=== PATIENT | female | born 1975 | race Native Hawaiian/Other Pacific Islander ===

== ENCOUNTER 2017-08-10 12:47 | Observation (INO) | payer BC ==
[2017-08-10] VITALS (9 sets, daily range): BP systolic 112–171; BP diastolic 63–84; PULSE 73–100; RESP 16–20; TEMP 96.8–98.2; O2SAT 97–100
[~2017-08-10] VITALS: Ht 154.9 cm; Wt 60.6 kg
[~2017-08-10 12:47] MED LIST: MYCO500 PO; PRED10 PO
--- NOTE | 2017-08-10 13:10 | PD ---
HPI Chief Complaint: Chest pain Time Seen by Provider: 12:56 Travel History International Travel<30 days: No Contact w/Intl Traveler<30days: No Traveled to known affect area: No History of Present Illness HPI This 42-year-old female says she had left-sided chest pain this morning. The pain lasted for several hours and was fairly constant. Was not aggravated by breathing. She was not short of breath. She has no history of heart disease. She has no history of blood clots. She does have a history of lupus. Her lupus recently has been active and she is currently on CellCept, Plaquenil and prednisone. She has a history of hypertension and is on blood pressure meds. She recently had a kidney biopsy and apparently is having some kidney problems. She was recently admitted at [facility] with anemia. She was found to have a blood clot in her esophagus she says and is due for follow-up. She does feel as though the pain is reproducible by palpation PFSH Social History Alcohol Use: No Tobacco Use: No Allergies-Medications (Allergen,Severity, Reaction): Coded Allergies: No Known Allergies (Verified Adverse Reaction, Unknown, 08/10/17) Reported Meds & Prescriptions Reported Meds & Active Scripts Active Reported Cardizem (Diltiazem HCl) 120 Mg Tab 180 Mg PO BID Plaquenil (Hydroxychloroquine Sulfate) 200 Mg Tab 200 Mg PO BID Take with food Pantoprazole (Pantoprazole Sodium) 40 Mg Tab 40 Mg PO DAILY K-Tab (Potassium Chloride) 10 Meq Tab 10 Meq PO EVERY THREE DAYS Lasix (Furosemide) 20 Mg Tab 20 Mg PO EVERY THREE DAYS Amlodipine (Amlodipine Besylate) 2.5 Mg Tab 2.5 Mg PO DAILY Losartan (Losartan Potassium) 25 Mg Tab 25 Mg PO DAILY Hydrochlorothiazide 12.5 Mg Tab 12.5 Mg PO BID Prednisone 10 Mg Tab 10 Mg PO DAILY Cellcept (Mycophenolate Mofetil) 500 Mg Tab 1,500 Mg PO BID Review of Systems General / Constitutional: No: Fever, Chills Eyes: No: Diploplia HENT: No: Headaches Cardiovascular: Positive: Chest Pain or Discomfort Respiratory: No: Shortness of Breath Gastrointestinal: No: Nausea Genitourinary: No: Urgency, Frequency Musculoskeletal: Positive: Myalgias, Arthralgias Skin: No Rash Neurologic: No: Weakness Endocrine: No: Heat Intolerance, Cold Intolerance Hematologic/Lymphatic: No: Easy Bruising Physical Exam Narrative GENERAL: Well-developed female SKIN: Focused skin assessment warm/dry. HEAD: Atraumatic. Normocephalic. EYES: Pupils equal and round. No scleral icterus. No injection or drainage. ENT: No nasal bleeding or discharge. Mucous membranes pink and moist. NECK: Trachea midline. No JVD. CARDIOVASCULAR: Regular rate and rhythm. No murmur appreciated. RESPIRATORY: No accessory muscle use. Clear to auscultation. Breath sounds equal bilaterally. GASTROINTESTINAL: Abdomen soft, non-tender, nondistended. Hepatic and splenic margins not palpable. MUSCULOSKELETAL: No obvious deformities. No clubbing. No cyanosis. Bilateral pedal edema. She does have scoliosis NEUROLOGICAL: Awake and alert. No obvious cranial nerve deficits. Motor grossly within normal limits. Normal speech. PSYCHIATRIC: Appropriate mood and affect; insight and judgment normal. Data Data Last Documented VS Vital Signs Date Time Temp Pulse Resp B/P (MAP) Pulse Ox O2 Delivery O2 Flow Rate FiO2 08/10/17 14:48 83 18 112/63 (79) 98 Room Air 08/10/17 12:50 98.2 Orders Orders Electrocardiogram (08/10/17 13:05) Complete Blood Count With Diff (08/10/17 13:05) Comprehensive Metabolic Panel (08/10/17 13:05) Troponin I (08/10/17 13:05) B-Type Natriuretic Peptide (08/10/17 13:05) Prothrombin Time / Inr (Pt) (08/10/17 13:05) Act Partial Throm Time (Ptt) (08/10/17 13:05) Urinalysis - C+S If Indicated (08/10/17 13:05) Magnesium (Mg) (08/10/17 13:05) Chest, Single Ap (08/10/17 13:05) Labs Laboratory Tests Test 08/10/17 13:00 White Blood Count 5.1 TH/MM3 Red Blood Count 2.92 MIL/MM3 Hemoglobin 8.5 GM/DL Hematocrit 25.5 % Mean Corpuscular Volume 87.2 FL Mean Corpuscular Hemoglobin 29.0 PG Mean Corpuscular Hemoglobin Concent 33.3 % Red Cell Distribution Width 14.7 % Platelet Count 254 TH/MM3 Mean Platelet Volume 6.6 FL Neutrophils (%) (Auto) 87.0 % Lymphocytes (%) (Auto) 7.7 % Monocytes (%) (Auto) 3.5 % Eosinophils (%) (Auto) 1.5 % Basophils (%) (Auto) 0.3 % Neutrophils # (Auto) 4.4 TH/MM3 Lymphocytes # (Auto) 0.4 TH/MM3 Monocytes # (Auto) 0.2 TH/MM3 Eosinophils # (Auto) 0.1 TH/MM3 Basophils # (Auto) 0.0 TH/MM3 CBC Comment DIFF FINAL Differential Comment Prothrombin Time 9.5 SEC Prothromb Time International Ratio 0.9 RATIO Activated Partial Thromboplast Time 26.7 SEC Blood Urea Nitrogen 49 MG/DL Creatinine 3.20 MG/DL Random Glucose 111 MG/DL Total Protein 6.1 GM/DL Albumin 2.5 GM/DL Calcium Level 8.5 MG/DL Magnesium Level 1.7 MG/DL Alkaline Phosphatase 60 U/L Aspartate Amino Transf (AST/SGOT) 8 U/L Alanine Aminotransferase (ALT/SGPT) 8 U/L Total Bilirubin 0.2 MG/DL Sodium Level 136 MEQ/L Potassium Level 4.5 MEQ/L Chloride Level 109 MEQ/L Carbon Dioxide Level 16.2 MEQ/L Anion Gap 11 MEQ/L Estimat Glomerular Filtration Rate 16 ML/MIN B-Type Natriuretic Peptide 41 PG/ML MDM Medical Decision Making Medical Screen Exam Complete: Yes Emergency Medical Condition: Yes Medical Record Reviewed: Yes Differential Diagnosis Differential includes coronary artery disease, chest wall pain, reflux Narrative Course EKG shows normal sinus rhythm. Hemoglobin is 8.5 with a white count of 5.1. BUN is 49 with creatinine of 3.2. Troponin analyzer is currently down and the result is pending. Diagnosis Primary Impression: Chest pain Brian Garcia MD Aug 10, 2017 13:10
[2017-08-10 13:18] LABS: AUTOMATED NEUTROPHIL # 4.4 TH/MM3 (1.8-7.7); BASOPHIL % 0.3 % (0.0-2.0); EOSINOPHIL # 0.1 TH/MM3 (0-0.4); EOSINOPHIL % 1.5 % (0.0-4.0); HEMATOCRIT 25.5 % (35.0-46.0); HEMOGLOBIN 8.5 GM/DL (11.6-15.3); LYMPH % 7.7 % (9.0-44.0); LYMPHOCYTE # 0.4 TH/MM3 (1.0-4.8); MEAN CELL VOLUME 87.2 FL (80.0-100.0); MEAN CORPUSCULAR HGB CONC 33.3 % (32.0-36.0); MEAN PLATELET VOLUME 6.6 FL (7.0-11.0); MONO % 3.5 % (0.0-8.0); MONOCYTE # 0.2 TH/MM3 (0-0.9); PLATELET COUNT 254 TH/MM3 (150-450); RED BLOOD COUNT 2.92 MIL/MM3 (4.00-5.30); RED CELL DISTRIBUTION WIDTH 14.7 % (11.6-17.2); WHITE BLOOD COUNT 5.1 TH/MM3 (4.0-11.0)
[2017-08-10] MEDS ORDERED: PANT40TA3 PO (13:18)
[2017-08-10] MEDS ORDERED: PLAQ200T PO (13:18)
[2017-08-10] MEDS ORDERED: HYDR12.56 PO (13:18)
[2017-08-10] MEDS ORDERED: FURO1TAB62 PO (13:18)
[2017-08-10] MEDS ORDERED: CARD180C5 PO (13:18)
[2017-08-10] MEDS ORDERED: LOSA25TA PO (13:18)
[2017-08-10] MEDS ORDERED: AMLO2.5T PO (13:18)
[2017-08-10] MEDS ORDERED: K-TA10TA PO (13:18)
[2017-08-10] MEDS ORDERED: CARD120T4 PO (13:19)
[2017-08-10 13:25] LABS: CHLORIDE 109 MEQ/L (98-107); SODIUM (NA) 136 MEQ/L (136-145)
[2017-08-10 13:29] LABS: ALBUMIN 2.5 GM/DL (3.4-5.0); BICARBONATE 16.2 MEQ/L (21.0-32.0); BLOOD UREA NITROGEN 49 MG/DL (7-18); CALCIUM 8.5 MG/DL (8.5-10.1); GLUCOSE,RANDOM 111 MG/DL (74-106); MAGNESIUM 1.7 MG/DL (1.5-2.5)
[2017-08-10 13:32] LABS: ALT (GPT) 8 U/L (10-53); AST (GOT) 8 U/L (15-37); GLOMERULAR FILTRATION RATE 16 ML/MIN (>89); INTERNATIONAL NORMALIZED RATIO 0.9 RATIO; PROTHROMBIN TIME - PATIENT 9.5 SEC (9.8-11.6)
[2017-08-10 13:34] LABS: TOTAL BILIRUBIN ADULT 0.2 MG/DL (0.2-1.0); TOTAL PROTEIN 6.1 GM/DL (6.4-8.2)
[2017-08-10 13:35] LABS: ALKALINE PHOSPHATASE 60 U/L (45-117)
--- NOTE | 2017-08-10 13:49 | RADRPT ---
EXAM DATE: 08/10/2017 1:46 PM EDT AGE/SEX: 42 years / Female INDICATIONS: Chest pain CLINICAL DATA: This is the patient's initial encounter. Patient reports that signs and symptoms have been present for 1 week and indicates a pain score of 0/10. MEDICAL/SURGICAL HISTORY: Hypertension. Gastroesophageal reflux disease. Lupus. None. COMPARISON: No prior exams available for comparison. FINDINGS: Marked scoliosis. Mild cardiomegaly. Lungs are clear. No pneumothorax. No pleural effusion. CONCLUSION: Marked scoliosis with mild compensated cardiomegaly Electronically signed by: Vu Alejandre MD 08/10/2017 1:48 PM EDT
--- NOTE | 2017-08-10 13:58 | EKG ---
Date Performed: 08/10/2017 Time Performed: 12:53:39 PTAGE: 42 years EKG: Sinus rhythm POSSIBLE RIGHT VENTRICULAR CONDUCTION DELAY BORDERLINE ECG NO PREVIOUS TRACING DOCTOR: Tommy Arechiga Interpretating Date/Time 08/10/2017 13:56:25
[2017-08-10 16:06] LABS: BILIRUBIN, URINE NEG (NEG); BLOOD, URINE MOD (NEG); GLUCOSE,URINE NEG (NEG); KETONE, URINE NEG (NEG); NITRITE,URINE NEG (NEG); PH, URINE 5.5 (5.0-8.5); URINE COLOR YELLOW (YELLW/STRAW); URINE LEUKOCYTE ESTERASE NEG (NEG)
[2017-08-10 16:12] LABS: TROPONIN I LESS THAN 0.02 NG/ML (0.02-0.05)
--- NOTE | 2017-08-10 16:14 | PD ---
Data Data Last Documented VS Vital Signs Date Time Temp Pulse Resp B/P (MAP) Pulse Ox O2 Delivery O2 Flow Rate FiO2 08/10/17 16:45 80 16 127/77 (94) 99 Room Air 08/10/17 12:50 98.2 Orders Orders Electrocardiogram (08/10/17 13:05) Complete Blood Count With Diff (08/10/17 13:05) Comprehensive Metabolic Panel (08/10/17 13:05) Troponin I (08/10/17 13:05) B-Type Natriuretic Peptide (08/10/17 13:05) Prothrombin Time / Inr (Pt) (08/10/17 13:05) Act Partial Throm Time (Ptt) (08/10/17 13:05) Urinalysis - C+S If Indicated (08/10/17 13:05) Magnesium (Mg) (08/10/17 13:05) Chest, Single Ap (08/10/17 13:05) Admit Order (Ed Use Only) (08/10/17 ) Labs Laboratory Tests Test 08/10/17 13:00 08/10/17 15:55 White Blood Count 5.1 TH/MM3 Red Blood Count 2.92 MIL/MM3 Hemoglobin 8.5 GM/DL Hematocrit 25.5 % Mean Corpuscular Volume 87.2 FL Mean Corpuscular Hemoglobin 29.0 PG Mean Corpuscular Hemoglobin Concent 33.3 % Red Cell Distribution Width 14.7 % Platelet Count 254 TH/MM3 Mean Platelet Volume 6.6 FL Neutrophils (%) (Auto) 87.0 % Lymphocytes (%) (Auto) 7.7 % Monocytes (%) (Auto) 3.5 % Eosinophils (%) (Auto) 1.5 % Basophils (%) (Auto) 0.3 % Neutrophils # (Auto) 4.4 TH/MM3 Lymphocytes # (Auto) 0.4 TH/MM3 Monocytes # (Auto) 0.2 TH/MM3 Eosinophils # (Auto) 0.1 TH/MM3 Basophils # (Auto) 0.0 TH/MM3 CBC Comment DIFF FINAL Differential Comment Prothrombin Time 9.5 SEC Prothromb Time International Ratio 0.9 RATIO Activated Partial Thromboplast Time 26.7 SEC Blood Urea Nitrogen 49 MG/DL Creatinine 3.20 MG/DL Random Glucose 111 MG/DL Total Protein 6.1 GM/DL Albumin 2.5 GM/DL Calcium Level 8.5 MG/DL Magnesium Level 1.7 MG/DL Alkaline Phosphatase 60 U/L Aspartate Amino Transf (AST/SGOT) 8 U/L Alanine Aminotransferase (ALT/SGPT) 8 U/L Total Bilirubin 0.2 MG/DL Sodium Level 136 MEQ/L Potassium Level 4.5 MEQ/L Chloride Level 109 MEQ/L Carbon Dioxide Level 16.2 MEQ/L Anion Gap 11 MEQ/L Estimat Glomerular Filtration Rate 16 ML/MIN Troponin I LESS THAN 0.02 NG/ML B-Type Natriuretic Peptide 41 PG/ML Urine Color YELLOW Urine Turbidity CLEAR Urine pH 5.5 Urine Specific [place] 1.020 Urine Protein 100 mg/dL Urine Glucose (UA) NEG mg/dL Urine Ketones NEG mg/dL Urine Occult Blood MOD Urine Nitrite NEG Urine Bilirubin NEG Urine Urobilinogen 0.2 MG/DL Urine Leukocyte Esterase NEG Urine RBC 4-9 /hpf Urine WBC 3-5 /hpf Urine Squamous Epithelial Cells 0-5 /hpf Urine Amorphous Sediment RARE Urine Bacteria FEW /hpf Urine Hyaline Casts 0-2 /lpf Microscopic Urinalysis Comment CULT NOT INDICATED MDM Supervised Visit with DOTTY: No Narrative Course Patient CARE assumed from Dr. Harris at 1500, recesses patient she is chest pain-free. Patient does become tearful at times during my history and physical , she is concerned about her overall state of health, recently admitted to [facility] for 2 weeks for acute on chronic kidney failure, she is followed by Dr. Duarte. She started having nondescript chest discomfort on left side of her chest starting this morning, no shortness of breath no abdominal pain no alleviating or exacerbating factors that she says to me. Her EKG does show nonspecific RSR prime pattern in V1 and deep S wave in lead III otherwise is a fairly unremarkable EKG. There is no concerning ST segment changes. Certainly her lupus puts her at increased risk for coronary artery disease, we are still awaiting a troponin at this time and will continue to reassess the patient. She is followed by Dr. Arechiga and is already inquiring about the possibility following up outpatient for stress testing if needed in the future. After the patient's troponin has returned as negative I have discussed the patient with Dr. Arechiga the possibility of following up outpatient for stress testing is the patient's preference. Dr. Arechiga and stated that he is uncomfortable with this and would rather have the patient in the chest pain center have serial troponins and a nuclear stress test. He states if any of that was positive he would be glad to be consulted on the patient. Recommendation was passed on to the patient and her and they have agreed for admission. The patient additional history is that she was admitted to [facility] a few weeks ago for similar complaints but then she had also coughed up a blood clot, she had a VQ scan which was negative at that time, she also had an endoscopy by Dr. Taylor showing a hematoma in the esophagus. She also recently had a kidney biopsy as well and the results are unknown at this time. Patient remains chest pain-free. At the request of the patient and Dr. Mcpherson request for outside records has been submitted to [facility], I have requested discharge summary consult and recommendations and labs. Diagnosis Primary Impression: Chest pain Admitting Information Admitting Physician Requests: Observation Condition: Stable Martinez Zaragoza MD Aug 10, 2017 16:14
[2017-08-10 16:20] LABS: AMORPHOUS SEDIMENT, URINE RARE; BACTERIA, URINE FEW /hpf; SQUAMOUS EPITHELIAL CELL URINE 0-5 /hpf (0-5)
[2017-08-10 16:21] LABS: HYALINE CAST, URINE 0-2 /lpf (RARE)
[2017-08-10] MEDS ORDERED: MORPHINE SULFATE 4 MG/ML INJ IV PUSH PRN (17:15)
[2017-08-10] MEDS ORDERED: SODIUM CHLORIDE 0.9% FLUSH 10 ML FLUSH IV FLUSH PRN (17:15)
[2017-08-10] MEDS ORDERED: ACETAMINOPHEN/HYDROcodone 325 MG/7.5 MG TAB PO PRN (17:15)
[2017-08-10] MEDS ORDERED: ACETAMINOPHEN 500 MG CPLT PO PRN (17:15)
[2017-08-10 18:24] LABS: TROPONIN I LESS THAN 0.02 NG/ML (0.02-0.05)
--- NOTE | 2017-08-10 19:13 | HHI.HP ---
[facility] Primary Care Physician Kamron Sheridan MD Admission Diagnosis Chest pain Diagnoses: (1) Chest pain Diagnosis: Principal (2) Acute renal failure superimposed on chronic kidney disease Diagnosis: Principal (3) Metabolic acidosis Diagnosis: Principal (4) Lupus (systemic lupus erythematosus) Diagnosis: Principal (5) Anemia Diagnosis: Principal Chief Complaint: Chest pain Travel History International Travel<30 Days: No Contact w/Intl Traveler <30 Da: No Traveled to Known Affected Are: No History of Present Illness Written by Errol Beltrán, acting as scribe for Dr. Freire on 08/10/17 at 18: 51. 42-year-old rather unfortunate female with known history of lupus, chronic kidney disease which is worsening who presented the hospital because of chest pain. Initially she states pain but then described it more as chest pressure. It is located in the left anterior upper chest, she describes as a pressure of 5 /10 on a pain scale. There is no associated nausea, vomiting, radiation into the neck, back, shoulder, arm, no diaphoresis, no shortness of breath or dyspnea. This morning when she woke up she developed the pain when she turned over in bed and the pain was again located in left anterior part of her chest and it lasted for approximately an hour. She called her primary medical doctor who notified her to go to the emergency department for evaluation. The patient had evaluation done in the emergency department and Dr. Zaragoza did call patient's opening machine cleaner Dr. Arechiga and notified him that the patient was in the emergency department for evaluation of chest pain. The patient wanted to have outpatient workup performed, however Dr. Arechiga did not feel comfortable and recommended that the patient be admitted to have a Lexiscan stress test performed. The patient does have worsening kidney injury. Her creatinine was 3.2 here in the emergency department. She indicates that the last number that she can remember was 2.2. She states that she has never been in the threes before. Patient just underwent renal biopsy on , 08/06/17. She has not received the results from the curer acid drum, . She did contact her curer acid drum while she was here in the hospital. They notified him that they have been admitted and he indicated that if the patient has remained in the hospital for longer than 1 day then he would like to be consulted. Currently the patient is asymptomatic. Review of Systems Cardiovascular: COMPLAINS OF: Chest pain, Lower Extremity Edema Except as stated in HPI: all other systems reviewed are Neg Past Family Social History Past Medical History Chronic kidney disease Hypertension Lupus History of thyroid nodule Past Surgical History 2 Kidney biopsy Reported Medications Reported Meds & Active Scripts Active Reported Cardizem (Diltiazem HCl) 120 Mg Tab 180 Mg PO BID Plaquenil (Hydroxychloroquine Sulfate) 200 Mg Tab 200 Mg PO BID Take with food Pantoprazole (Pantoprazole Sodium) 40 Mg Tab 40 Mg PO DAILY K-Tab (Potassium Chloride) 10 Meq Tab 10 Meq PO EVERY THREE DAYS Lasix (Furosemide) 20 Mg Tab 20 Mg PO EVERY THREE DAYS Amlodipine (Amlodipine Besylate) 2.5 Mg Tab 2.5 Mg PO DAILY Losartan (Losartan Potassium) 25 Mg Tab 25 Mg PO DAILY Hydrochlorothiazide 12.5 Mg Tab 12.5 Mg PO BID Prednisone 10 Mg Tab 10 Mg PO DAILY Cellcept (Mycophenolate Mofetil) 500 Mg Tab 1,500 Mg PO BID Allergies: Coded Allergies: No Known Allergies (Verified Allergy, Unknown, 08/10/17) Family History Family history reviewed and she indicates that father had diabetes Social History Patient denies any tobacco, alcohol or illicit drug Physical Exam Vital Signs Vital Signs Date Time Temp Pulse Resp B/P (MAP) Pulse Ox O2 Delivery O2 Flow Rate FiO2 08/10/17 18:12 08/10/17 17:29 99 21 08/10/17 16:45 80 16 127/77 (94) 99 Room Air 08/10/17 15:54 80 16 134/72 (92) 100 Room Air 08/10/17 14:48 83 18 112/63 (79) 98 Room Air 08/10/17 13:32 83 18 120/72 (88) 98 Room Air 08/10/17 13:00 93 08/10/17 12:50 98.2 100 18 171/79 (109) 97 Physical Exam GENERAL: Well-developed, well-nourished, alert and orientated HEENT: Head is normocephalic without any lesions or masses noted. Facial features are symmetric. Eyes: Pupils equal round reactive to light. Extraocular muscles are intact. Conjunctivae were clear. Oropharyngeal: Pharynx without any erythema. Tongue is midline without deviation. NECK: Supple without any masses. Trachea midline no deviation. No JVD CARDIAC: Regular rhythm, regular rate. S1/S2 are heard. No murmurs. Unable to reproduce pain/pressure w palpation LUNGS: Clear to auscultation bilaterally. No wheeze. No use of accessory muscles on inspiration or expiration. ABDOMEN: Soft, nontender. Nondistended. Bowel sounds heard in all 4 quadrants.Negative rebound, negative guarding EXTREMITIES: 2+ pitting edema up to tibial tuberosity, pulses are equal bilaterally. NEUROLOGY: Mood and affect appear appropriate. Cranial nerves II through XII grossly intact. Muscle strength 5/5 in upper and lower extremities bilaterally. Laboratory Laboratory Tests Test 08/10/17 13:00 08/10/17 15:55 08/10/17 17:30 White Blood Count 5.1 Red Blood Count 2.92 Hemoglobin 8.5 Hematocrit 25.5 Mean Corpuscular Volume 87.2 Mean Corpuscular Hemoglobin 29.0 Mean Corpuscular Hemoglobin Concent 33.3 Red Cell Distribution Width 14.7 Platelet Count 254 Mean Platelet Volume 6.6 Neutrophils (%) (Auto) 87.0 Lymphocytes (%) (Auto) 7.7 Monocytes (%) (Auto) 3.5 Eosinophils (%) (Auto) 1.5 Basophils (%) (Auto) 0.3 Neutrophils # (Auto) 4.4 Lymphocytes # (Auto) 0.4 Monocytes # (Auto) 0.2 Eosinophils # (Auto) 0.1 Basophils # (Auto) 0.0 CBC Comment DIFF FINAL Differential Comment Prothrombin Time 9.5 Prothromb Time International Ratio 0.9 Activated Partial Thromboplast Time 26.7 Blood Urea Nitrogen 49 Creatinine 3.20 Random Glucose 111 Total Protein 6.1 Albumin 2.5 Calcium Level 8.5 Magnesium Level 1.7 Alkaline Phosphatase 60 Aspartate Amino Transf (AST/SGOT) 8 Alanine Aminotransferase (ALT/SGPT) 8 Total Bilirubin 0.2 Sodium Level 136 Potassium Level 4.5 Chloride Level 109 Carbon Dioxide Level 16.2 Anion Gap 11 Estimat Glomerular Filtration Rate 16 Troponin I LESS THAN 0.02 LESS THAN 0.02 B-Type Natriuretic Peptide 41 Urine Color YELLOW Urine Turbidity CLEAR Urine pH 5.5 Urine Specific [place] 1.020 Urine Protein 100 Urine Glucose (UA) NEG Urine Ketones NEG Urine Occult Blood MOD Urine Nitrite NEG Urine Bilirubin NEG Urine Urobilinogen 0.2 Urine Leukocyte Esterase NEG Urine RBC 4-9 Urine WBC 3-5 Urine Squamous Epithelial Cells 0-5 Urine Amorphous Sediment RARE Urine Bacteria FEW Urine Hyaline Casts 0-2 Microscopic Urinalysis Comment CULT NOT INDICATED Total Creatine Kinase 21 Result Diagram: 08/10/17 1300 08/10/17 1300 Imaging Last Impressions Chest X-Ray 08/10/17 1305 Signed Impressions: CONCLUSION: Marked scoliosis with mild compensated cardiomegaly Caprini VTE Risk Assessment Caprini VTE Risk Assessment: No/Low Risk (score <= 1) Caprini Risk Assessment Model Point Value = 1 Point Value = 2 Point Value = 3 Point Value = 5 Age 41-60 Minor surgery BMI > 25 kg/m2 Swollen legs Varicose veins or History of unexplained or recurrent spontaneous Oral contraceptives or hormone replacement Sepsis (< 1 month) Serious lung disease, including pneumonia (< 1 month) Abnormal pulmonary function Acute myocardial infarction Congestive heart failure (< 1 month) History of inflammatory bowel disease Medical patient at bed rest Age 61-74 Arthroscopic surgery Major open surgery (> 45 min) Laparoscopic surgery (> 45 min) Malignancy Confined to bed (> 72 hours) Immobilizing plaster cast Central venous access Age >= 75 History of VTE Family history of VTE Factor V Leiden Prothrombin [id number] Lupus anticoagulant Anticardiolipin antibodies Elevated serum homocysteine Heparin-induced thrombocytopenia Other congenital or acquired thrombophilia Stroke (< 1 month) Elective arthroplasty Hip, pelvis, or leg fracture Acute spinal cord injury (< 1 month) Prophylaxis Regimen Total Risk Factor Score Risk Level Prophylaxis Regimen 0-1 Low Early ambulation 2 Moderate Order ONE of the following: *Sequential Compression Device (SCD) *Heparin 5000 units SQ BID 3-4 Higher Order ONE of the following medications: *Heparin 5000 units SQ TID *Enoxaparin/Lovenox 40 mg SQ daily (WT < 150 kg, CrCl > 30 mL/min) *Enoxaparin/Lovenox 30 mg SQ daily (WT < 150 kg, CrCl > 10-29 mL/min) *Enoxaparin/Lovenox 30 mg SQ BID (WT < 150 kg, CrCl > 30 mL/min) AND/OR *Sequential Compression Device (SCD) 5 or more Highest Order ONE of the following medications: *Heparin 5000 units SQ TID (Preferred with Epidurals) *Enoxaparin/Lovenox 40 mg SQ daily (WT < 150 kg, CrCl > 30 mL/min) *Enoxaparin/Lovenox 30 mg SQ daily (WT < 150 kg, CrCl > 10-29 mL/min) *Enoxaparin/Lovenox 30 mg SQ BID (WT < 150 kg, CrCl > 30 mL/min) AND *Sequential Compression Device (SCD) Assessment and Plan Assessment and Plan Chest pain/pressure, atypical -Patient does have increased risk with 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 Arechiga who recommended the patient undergo nuclear stress test, if patient ruled out for acute coronary event will anticipate nuclear stress test in the morning. If cardiac enzymes are elevated then Dr. Arechiga needs to be notified immediately -Patient will be continued on aspirin, morphine as needed for pain, nitroglycerin as needed Acute renal failure superimposed on chronic kidney disease with metabolic acidosis -Patient does have chronic kidney disease, however unknown stage at this time. There are no records available to determine. Patient indicates that lasts number that she knew was her creatinine was 2.2. Patient has recently underwent renal biopsy 08/06/17. Patient does not know the results -Patient indicates that she spoke with Dr. Duatre her curer acid drum. He indicated that if the patient is remain in the hospital over 24 hours and he would request a consultation. -Encouraged po hydration. Start IVF fluids at low rate and monitor pt's Cr levels. Caution as pt has developed lower ext edema. -Monitor renal function, if renal functions do not improve, patient will require further management with curer acid drum consultation, possible bicarb to correct the acidosis Hypertension -Home medications have been continued except for pt's losartan and HCTZ due to acute on chronic renal failure. Lupus -Home medications continued DVT prevention -Sequential compression devices This note was transcribed by nain Beltrán. I, Dr. Aline Friere personally performed the history, physical exam, and medical decision making; and confirmed the accuracy of the information in the transcribed note. Authenticated by Dr. Aline Freire on 08/10/17 at 18:51. Code Status Full code Discussed Condition With ER physician, pt and pt's Errol Beltrán Aug 10, 2017 19:13 Aline Freire MD Aug 11, 2017 05:30
[2017-08-10 20:57] LABS: TROPONIN I LESS THAN 0.02 NG/ML (0.02-0.05)
[2017-08-10] MEDS: DILTIAZEM-CD 180 MG CAP ER PO SCH ×2 (21:00→22:51)
--- NOTE | 2017-08-10 21:50 | EKG ---
Date Performed: 08/10/2017 Time Performed: 20:24:06 PTAGE: 42 years EKG: Sinus rhythm POSSIBLE RIGHT VENTRICULAR CONDUCTION DELAY BORDERLINE ECG No significant change from prior electroc ardiogram. PREVIOUS TRACING : 08/10/2017 17.24 DOCTOR: Tommy Arechiga Interpretating Date/Time 08/10/2017 21:48:16
--- NOTE | 2017-08-10 21:50 | EKG ---
Date Performed: 08/10/2017 Time Performed: 17:24:52 PTAGE: 42 years EKG: Sinus rhythm RSR prime in leads V1 and V2. Compared to prior electrocardiogram, rate has decreased . PREVIOUS TRACING : 08/10/2017 12.53 DOCTOR: Tommy Arechiga Interpretating Date/Time 08/10/2017 21:49:19
[2017-08-10] MEDS: MYCOPHENOLATE MOFETIL 500 MG TAB PO SCH (22:51)
[2017-08-10] MEDS: HYDROXYCHLOROQUINE SULFATE 200 MG TAB PO SCH (22:51)
[2017-08-10] MEDS: SODIUM CHLORIDE 0.9% FLUSH 10 ML FLUSH IV FLUSH SCH (22:52)
[2017-08-11] MEDS ORDERED: LACTATED RINGER'S 1000 ML INJ 1,000 ML IV SCH
[2017-08-11 00:12] VITALS: BP 120/77; PULSE 74; RESP 20; TEMP 96.5; O2SAT 95
[2017-08-11 04:22] VITALS: BP 135/85; PULSE 86; RESP 20; TEMP 96.2; O2SAT 99
[2017-08-11] MEDS ORDERED: NITROGLYCERIN 2% OINT 1 GM PACKET TOPICAL PRN (05:45)
[2017-08-11] MEDS ORDERED: SODIUM CHLOR 0.9% 1000 ML INJ 1,000 ML IV SCH (05:45)
--- NOTE | 2017-08-11 05:57 | HHI.PR ---
Addendum to Inpatient Note Addendum Reason: Additional Documentation Additional Information Plan was to start pt on NS@60ml/hr however for some reason my order didn't save. Night team did start her on LR @65ml/hr as she is NPO after midnight however due to pt's kidney function, I have switched to NS@60ml/hr to prevent hyperkalemia. f/u her BMP this morning. Aline Freire MD Aug 11, 2017 05:57
[2017-08-11 07:39] VITALS: BP 142/71; PULSE 97; RESP 18; TEMP 98.5; O2SAT 97
[2017-08-11 08:00] VITALS: O2SAT 95
[2017-08-11] MEDS: DILTIAZEM-CD 180 MG CAP ER PO SCH (08:22)
[2017-08-11] MEDS: predniSONE 10 MG TAB PO SCH ×3 (08:23→13:27)
[2017-08-11] MEDS: SODIUM CHLORIDE 0.9% FLUSH 10 ML FLUSH IV FLUSH SCH (08:28)
[2017-08-11] MEDS ORDERED: PANTOPRAZOLE SOD 40 MG DELAYED RELEASE TAB PO SCH (09:00)
[2017-08-11] MEDS ORDERED: FUROSEMIDE 20 MG TAB PO SCH (09:00)
[2017-08-11] MEDS ORDERED: amLODIPine BESYLATE 5 MG TAB PO SCH (09:00)
[2017-08-11] MEDS ORDERED: POTASSIUM CHLORIDE 10 MEQ CONTROLLED RELEASE TAB PO SCH (09:00)
[2017-08-11] MEDS: HYDROXYCHLOROQUINE SULFATE 200 MG TAB PO SCH ×2 (09:00→13:27)
[2017-08-11] MEDS ORDERED: ASPIRIN 325 MG TAB PO SCH (09:00)
[2017-08-11] MEDS: MYCOPHENOLATE MOFETIL 500 MG TAB PO SCH (09:03)
--- NOTE | 2017-08-11 10:55 | HHI.PR ---
Subjective Remarks Follow-up chest pain and acute on chronic renal failure. Patient seen and examined, lying in bed comfortably in no apparent distress. Denies any further chest pain. Resolved today. Has been eating well with no abdominal pain, nausea or vomiting. Patient states she has a scheduled appointment with Dr. Duarte tomorrow at noon and is hoping she can follow up with him then. Eager to get home. All symptoms have resolved. Afebrile overnight, vital signs are stable. Will undergo Lexiscan today. Objective Vitals Vital Signs Date Time Temp Pulse Resp B/P (MAP) Pulse Ox O2 Delivery O2 Flow Rate FiO2 08/11/17 07:39 98.5 97 18 142/71 (94) 97 08/11/17 04:22 96.2 86 20 135/85 (102) 99 08/11/17 00:12 96.5 74 20 120/77 (91) 95 08/10/17 21:00 81 08/10/17 20:43 96.8 73 20 128/84 (99) 97 08/10/17 20:30 99 21 08/10/17 18:12 08/10/17 17:29 99 21 08/10/17 16:45 80 16 127/77 (94) 99 Room Air 08/10/17 15:54 80 16 134/72 (92) 100 Room Air 08/10/17 14:48 83 18 112/63 (79) 98 Room Air 08/10/17 13:32 83 18 120/72 (88) 98 Room Air 08/10/17 13:00 93 08/10/17 12:50 98.2 100 18 171/79 (109) 97 I/O 08/10/17 08/10/17 08/10/17 08/11/17 08/11/17 08/11/17 07:00 15:00 23:00 07:00 15:00 23:00 Intake Total 300 ml Balance 300 ml Intake IV Total 300 ml # Voids 2 Result Diagram: 08/10/17 1300 08/10/17 1300 Imaging Last Impressions Chest X-Ray 08/10/17 1305 Signed Impressions: CONCLUSION: Marked scoliosis with mild compensated cardiomegaly Objective Remarks GENERAL: Well-developed, well-nourished patient in NAD. SKIN: Warm and dry. No rash. HEAD: Normocephalic. Atraumatic. EYES: Pupils equal and round. No scleral icterus. No injection or drainage. ENT: No nasal bleeding or discharge. Mucous membranes pink and moist. NECK: Supple. Trachea midline. CARDIOVASCULAR: Regular rate and rhythm. S1, S2 noted. No murmur appreciated. RESPIRATORY: No accessory muscle use. Clear to auscultation. Breath sounds equal bilaterally. GASTROINTESTINAL: Abdomen soft, non-tender, nondistended. Normoactive bowel sounds x4. MUSCULOSKELETAL: No obvious deformities. Extremities without clubbing, cyanosis , or edema. NEUROLOGICAL: Awake and alert. No obvious cranial nerve deficits. Motor grossly within normal limits. 5/5 muscle strength in bilateral upper and lower extremities. Normal speech. PSYCHIATRIC: Appropriate mood and affect; insight and judgment normal. 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 - Patient ruled out for acute coronary event with serial cardiac enzymes and serial EKGs. - ER physician did discuss with patient's fur weigher Dr. Arechiga who recommended the patient undergo nuclear stress test. - Patient will be continued on aspirin, morphine as needed for pain, nitroglycerin as needed. - Will undergo a Lexiscan to further rule out any possibility of ischemia. Further hospitalization and treatment plan will depend on nuclear imaging results. - Patient is stable at this time and agreeable to plan. Acute renal failure superimposed on chronic kidney disease with metabolic acidosis Recently diagnosed with lupus nephritis - Patient does have chronic kidney disease, stage III, concern for patient advancing to stage IV. Records from Dr. Duarte's office reviewed showing creatinine 2.2 earlier this month. - Patient has recently underwent renal biopsy 08/06/17. Awaiting biopsy results. - Patient indicates that she spoke with Dr. Duarte her street and building decorator. He indicated that if the patient is remain in the hospital over 24 hours and he would request a consultation. - Encouraged PO hydration. Start IVF fluids at low rate and monitor pt's Cr levels. Caution as pt has developed lower ext edema. - Monitor renal function, if renal functions do not improve, patient will require further management with street and building decorator consultation, possible bicarb to correct the acidosis. - Does have lower extremity edema, patient takes Lasix Q3D, last taken two days ago. Will restart for tomorrow. History of chronic anemia, secondary to iron deficiency and chronic disease. Baseline hemoglobin 7.1. Recent hospitalization for symptomatic anemia (07/21/2017) - Was given 2 units PRBC during hospitalization, upon dc hemoglobin 9.1. No signs of bleeding. - Outpatient follow up with GI, Dr. Ro. H&H stable at this time. Follow. Hypertension -Home medications have been continued except for pt's losartan and HCTZ due to acute on chronic renal failure. Lupus -Home medications continued DVT prevention -Sequential compression devices Discharge Planning Spoke to Valerie CAMPBELL with Dr. Duatre nephrology who has verified she has an appointment in the office tomorrow. Lexiscan normal without ischemia and adequate EF. Will DC home to follow up with PCP this week and Dr. Duarte tomorrow. Shannon Garcia Aug 11, 2017 10:55
[2017-08-11] MEDS ORDERED: REGADENOSON INJ 0.4 MG/5 ML SYR IV ONE (11:22)
[2017-08-11 11:43] VITALS: BP 161/77; PULSE 93; RESP 18; TEMP 97.4; O2SAT 96
--- NOTE | 2017-08-11 12:58 | RADRPT ---
EXAM DATE: 08/11/2017 12:37 PM EDT AGE/SEX: 42 years / Female INDICATIONS:Angina. . Left chest pain. CLINICAL DATA: This is the patient's initial encounter. Patient reports that signs and symptoms have been present for 1 day and indicates a pain score of 5/10. MEDICAL/SURGICAL HISTORY: Lupus. Gastroesophageal reflux disease. Renal failure, chronic. Hy pertension. section. COMPARISON: No prior exams available for comparison. DOSE: 26.7 mCi Tc 99m Myoview at stress 8.6 mCi [id number] at rest 0.4 mg Lexiscan STRESS SYMPTOMS: Chest pain and dyspnea. EJECTION FRACTION: 69 % TECHNIQUE: The patient underwent pharmacologic stress with infusion of prescribed dose. Continuous ECG tracing was monitored during stress. Gated SPECT imaging was performed after stress and conventi onal SPECT imaging was performed at rest. The examination was performed on a SPECT/CT scanner, both attenuation and non-corrected datasets were reviewed. FINDINGS: Distribution: The maximum perfused segment at stress is in the anterolateral wall. Perfusion Study: The pattern of perfusion at stress is within normal limits. Gated Study: There are intact wall motion and wall thickening without hypokinetic or dyskinetic segm ents. The ejection fraction is calculated at 69%. RISK CATEGORY: Low (<1% Annual Motality Rate) CONCLUSION: 1. No appreciable ischemia. Electronically signed by: Magalys Goldstein MD 08/11/2017 12:57 PM EDT
[2017-08-11] MEDS ORDERED: LOSARTAN 25 MG TAB PO SCH (13:00)
[2017-08-11 13:22] LABS: AUTOMATED NEUTROPHIL # 2.7 TH/MM3 (1.8-7.7); BASOPHIL % 0.5 % (0.0-2.0); EOSINOPHIL # 0.1 TH/MM3 (0-0.4); EOSINOPHIL % 2.4 % (0.0-4.0); HEMATOCRIT 24.4 % (35.0-46.0); HEMOGLOBIN 8.1 GM/DL (11.6-15.3); LYMPH % 10.5 % (9.0-44.0); LYMPHOCYTE # 0.3 TH/MM3 (1.0-4.8); MEAN CELL VOLUME 86.2 FL (80.0-100.0); MEAN CORPUSCULAR HEMOGLOBIN 28.4 PG (27.0-34.0); MONO % 4.5 % (0.0-8.0); MONOCYTE # 0.1 TH/MM3 (0-0.9); NEUT % 82.1 % (16.0-70.0); PLATELET COUNT 230 TH/MM3 (150-450); RED BLOOD COUNT 2.83 MIL/MM3 (4.00-5.30); RED CELL DISTRIBUTION WIDTH 14.5 % (11.6-17.2); WHITE BLOOD COUNT 3.2 TH/MM3 (4.0-11.0)
[2017-08-11 13:38] LABS: CALCIUM 8.5 MG/DL (8.5-10.1)
[2017-08-11 13:39] LABS: BICARBONATE 18.3 MEQ/L (21.0-32.0)
--- NOTE | 2017-08-11 14:40 | HHI.DCPOC ---
Discharge Care Plan Diagnosis: (1) Chest pain (2) Acute renal failure superimposed on chronic kidney disease (3) Lupus (systemic lupus erythematosus) Goals to Promote Your Health * To prevent worsening of your condition and complications * To maintain your health at the optimal level Directions to Meet Your Goals Take your medications as prescribed Follow your dietary instruction Follow activity as directed Keep your appointments as scheduled Take your immunizations and boosters as scheduled If your symptoms worsen call your PCP, if no PCP go to Urgent Care Center or Emergency Room Smoking is Dangerous to Your Health. Avoid second hand smoke Call the 24-hour hour crisis hotline for domestic abuse at Shannon Garcia Aug 11, 2017 14:40
[2017-08-11 15:42] VITALS: BP 144/76; PULSE 90; RESP 18; TEMP 96.2; O2SAT 96
[2017-08-11] MEDS ORDERED: HYDROCHLOROTHIAZIDE 12.5 MG CAP PO SCH (18:00)
--- NOTE | 2017-08-11 18:32 | TR ---
Date Performed: 08/11/2017 Time Performed: 11:47:09 DOCTOR: Jaimee Dunn DRUG LIST: CLINICAL HISTORY: REASON FOR TEST: Chest pain REASON FOR ENDING: OBSERVATION: CONCLUSION: Lexiscan stress test was performed under standard four minute protocol. Radionuclid e was injected one minute prior to ending the test. No electrocardiographic abormalities were present to suggest ischemia. Nuclear imaging and interpretation are pending. COMMENTS: no ischemia
== END 2017-08-11 15:44 | disposition home or self-care (01) ==
LOC: PHED 12:47 → PHEDA 17:10 → PH3A 18:05 → OBSVTOIN 19:30 → INTOOBSV 19:30
PROVIDERS: ADMIT Hospitalist; ATTEND Hospitalist
DX: R07.89 Other chest pain (principal); E87.2 Acidosis; I12.9 Hypertensive chronic kidney disease with stage 1 through stage 4 chronic kidney disease, or unspecified chronic kidney disease; N18.3 Chronic kidney disease, stage 3 (moderate); N17.9 Acute kidney failure, unspecified; M32.9 Systemic lupus erythematosus, unspecified; R60.0 Localized edema; M41.9 Scoliosis, unspecified; R94.31 Abnormal electrocardiogram [ECG] [EKG]; R06.02 Shortness of breath
CPT/HCPCS: 71045; 78452; 80048; 80053; 81001; 82550; 83735; 83880; 84484; 85025; 85610; 85730; 93005; 93017; 99285; A9502; G0378; J2785; J7030; J7120; J7512; J7517